=== PATIENT | female | born 1950 | race Caucasian/White ===

== ENCOUNTER 2017-08-05 22:03 | Emergency (ER) | END 2017-08-06 03:34 | disposition home or self-care (01) ==

== ENCOUNTER 2019-01-05 18:51 | Emergency (ER) | payer MEDICARE, OTHER ==
[~2019-01-05] VITALS: Ht 154.9 cm; Wt 81.3 kg
[~2019-01-05 18:51] MED LIST: ATEN-51 PO; INSU100I27 SQ; METF-849 PO; NOVO3I SC; SIMV20TA PO
[2019-01-05 19:06] VITALS: Ht 154.9 cm; Wt 81.3 kg
[2019-01-05] MEDS ORDERED: KETOROLAC 30 MG INJ IM STA (20:46)
[2019-01-05] MEDS ORDERED: IBUP-1542 PO (21:44)
[2019-01-05] MEDS ORDERED: HYDR-4011 PO (21:44)
--- NOTE | 2019-01-05 21:48 | ERD ---
ER Documentation Chief Complaint Chief Complaint right knee pain x 2 weeks, denies trauma HPI 68-year-old female presents with complaint of right knee pain. States that the pain started 2 weeks ago. She denies any trauma. States she had similar pain 7 years ago which self resolved. States that the pain is been worse when she ambulates but she is amatory. States that she would like some medication for pain. Denies any leg swelling, leg erythema, numbness, weakness, tingling, fevers, masses. ROS All systems reviewed and are negative except as per history of present illness. Medications Home Meds Active Scripts Hydrocodone/Acetaminophen ([place] 5-325 Tablet) 1 Each Tablet, 1 TAB PO Q6H PRN for PAIN, #10 TAB Prov:GARTH FOX 01/05/19 Ibuprofen* (Motrin*) 600 Mg Tab, 600 MG PO Q6 for knee pain, #30 TAB Prov:GARTH FOX 01/05/19 Metformin* (Glucophage*) 500 Mg Tab, 500 MG PO BID, #20 TAB Prov:ROLO BOWEN DO 08/06/17 Reported Medications Atenolol* (Atenolol*) 25 Mg Tablet, 25 MG PO DAILY, #30 TAB 08/06/17 Simvastatin* (Zocor*) 20 Mg Tablet, 20 MG PO QHS, #30 TAB 08/06/17 Insulin Aspart* (Novolog Insulin Pen*) 100 Unit/Ml Soln, 10 UNIT SC AC BREAKFAST DINNER, EA 08/06/17 Insulin Detemir (Levemir Flextouch) 100 Unit/1 Ml Insuln.pen, 15 UNIT SQ QHS 08/06/17 Allergies Allergies: Coded Allergies: No Known Allergy (Unverified , 08/06/17) PMhx/Soc History of Surgery: No Anesthesia Reaction: No Hx Neurological Disorder: No Hx Respiratory Disorders: No Hx Cardiac Disorders: Yes (hypertension, high cholesterol) Hx Psychiatric Problems: No Hx Miscellaneous Medical Probl: Yes (diabetes) Hx Alcohol Use: No Hx Substance Use: No Hx Tobacco Use: No Smoking Status: Never smoker FmHx Family History: No diabetes, No coronary disease, No other Physical Exam Vitals Vital Signs Date Temp Pulse Resp B/P (MAP) Pulse Ox O2 O2 Flow FiO2 Time Delivery Rate 01/05/19 98.1 97 18 163/81 98 19:06 (108) Physical Exam Const: No acute distress Head: Atraumatic Eyes: Normal Conjunctiva ENT: Normal External Ears, Nose and Mouth. Neck: Full range of motion. No meningismus. Resp: Clear to auscultation bilaterally Cardio: Regular rate and rhythm, no murmurs Abd: Soft, non tender, non distended. Normal bowel sounds Skin: No petechiae or rashes Back: No midline or flank tenderness Ext: No cyanosis, or edema Neur: Awake and alert Psych: Normal Mood and Affect Lower Extremity - bilateral: Skin: No laceration Compartments: Soft Motor: Full active range of motion hip/knee/ankle/foot Sensation: Intact to light touch FDWS/MF/LF/P surfaces. Bones: Nontender pelvis/knee/proximal tibia/ malleoli/foot Joints: No effusion or laxity Pulses/Perfusion: 2+ DP, Capillary refill < 2 seconds Results 24 hrs Current Medications Medications Dose Sig/Ranulfo Start Time Status Last (Trade) Ordered Route PRN Stop Time Admin Dose Reason Admin Ketorolac 30 mg ONCE STAT 01/05/19 DC 01/05/19 Tromethamine IM 20:46 01/05/19 20:56 (Toradol) 20:48 Procedures/MDM DIAGNOSTIC IMAGING REPORT Patient: JESSE CRUZ : 1950 Age: 68 Sex: F MR #: [id number] DOS: 01/05/192045 Ordering MD: GARTH FOX Location: [facility] Room/Bed: PROCEDURE: XR Knee. CLINICAL INDICATION: Right knee pain. TECHNIQUE: AP, lateral and tunneled views of the right knee were obtained. The images reviewed on a PACS workstation. COMPARISON: None available FINDINGS: The distal femur and proximal tibia/fibula are normal in appearance. There is no fracture. The medial and lateral compartment joint spaces are preserved. There is no abnormal calcification. There is no joint effusion. Hoffa's fat pad is normal in appearance. There is normal appearance of the patellofemoral joint. The soft tissues are unremarkable. IMPRESSION: 1. Normal radiographs of the right knee. No evidence of fracture. RPTAT: HGAS .Jayro Miranda MD, MD Date Time Electronically viewed and signed by .Jayro Miranda MD, on 01/05/2019 2 1:43 .S/ CC: GARTH FOX [id number] MDM: X-rays within normal limits and the exam was also within normal limits. Patient possibly has osteoarthritis versus gout flareup. Patient was told to follow-up with her primary care provider and get tested for gout. In the meantime patient will be treated with ibuprofen which would cover for both. Patient also given [place] for breakthrough pain. There is no swelling or erythema noted to exam therefore my suspicion for DVT is very low. I have low suspicion for neurovascular compromise, compartment syndrome, fracture, osteo myelitis, septic joint, blood clot, or other emergent condition. Departure Diagnosis: Primary Impression: Knee pain Chronicity: acute Laterality: right Qualified Codes: M25.561 - Pain in right knee Condition: Stable Patient Instructions: Knee Pain, Uncertain Cause Referrals: [facility] YOU HAVE RECEIVED A MEDICAL SCREENING EXAM AND THE RESULTS INDICATE THAT YOU DO NOT HAVE A CONDITION THAT REQUIRES URGENT TREATMENT IN THE EMERGENCY DEPARTMENT. FURTHER EVALUATION AND TREATMENT OF YOUR CONDITION CAN WAIT UNTIL YOU ARE SEEN IN YOUR DOCTORS OFFICE WITHIN THE NEXT 1-2 DAYS. IT IS YOUR RESPONSIBILITY TO MAKE AN APPOINTMENT FOR FOLOW-UP CARE. IF YOU HAVE A PRIMARY DOCTOR --you should call your primary doctor and schedule an appointment IF YOU DO NOT HAVE A PRIMARY DOCTOR YOU CAN CALL OUR PHYSICIAN REFERRAL HOTLINE AT IF YOU CAN NOT AFFORD TO SEE A PHYSICIAN YOU CAN CHOSE FROM THE FOLLOWING COUNTS INCLUDE 234 BEDS AT THE [facility] [address] [facility]. [facility] [address] [facility] [facility] [address] [facility]. [facility] [address] [facility]. [facility] [address] [facility]. [facility] [address] Additional Instructions: Please follow-up with your primary care physician and ask them to test you for possible gout. FOLLOW UP WITH YOUR PRIMARY CARE PHYSICIAN TOMORROW.Return to this facility if you are not improving as expected. GARTH FOX Jan 05, 2019 21:48
== END 2019-01-05 21:55 | disposition home or self-care (01) ==
LOC: FTE 18:51
DX: M25.561 Pain in right knee (principal); I10 Essential (primary) hypertension; E11.9 Type 2 diabetes mellitus without complications; Z79.4 Long term (current) use of insulin
CPT/HCPCS: 73562; 96372; 99284; J1885

== ENCOUNTER 2019-03-30 17:22 | Emergency (ER) | payer MEDICARE, OTHER ==
[~2019-03-30] VITALS: Ht 162.6 cm; Wt 77.0 kg
[~2019-03-30 17:22] MED LIST changes: +HYDR-4011 PO; +IBUP-1542 PO; +NAPR-985 PO
[2019-03-30 17:44] VITALS: Ht 162.6 cm; Wt 77.0 kg
[2019-03-30 20:19] VITALS: BP 154/78; PULSE 72; RESP 17
== END 2019-03-30 20:19 | disposition home or self-care (01) ==
LOC: FTE 17:22
DX: M25.561 Pain in right knee (principal); I10 Essential (primary) hypertension; E11.9 Type 2 diabetes mellitus without complications; Z79.4 Long term (current) use of insulin
CPT/HCPCS: 99282